=== PATIENT | male | born 1990 | race Caucasian/White ===

== ENCOUNTER 2020-01-07 17:30 | Observation (INO) ==
[2020-01-07] MEDS ORDERED: Ondansetron ODT 4 MG TAB.RAPDIS SL PRN (18:00)
[2020-01-07] MEDS ORDERED: Naloxone 0.4 MG/ML INJ IVP PRN (18:00)
[2020-01-07] MEDS ORDERED: 0.9 % Sodium Chloride 1,000 ML IVC SCH (18:00)
[2020-01-07] MEDS ORDERED: Ketorolac 15 MG/ML VIAL IVP PRN (18:02)
[2020-01-07] MEDS: Nicotine 21 MG PATCH.TD24 TD SCH (20:20)
[2020-01-07] MEDS: *HR* Heparin 5,000 UNIT/ML VIAL SQ SCH (20:23)
[2020-01-07] MEDS: Piperacillin/Tazobactam 3.375 GM in 0.9 % Sodium Chloride Mini Bag 100 ML IVPB SCH (23:42)
[2020-01-08 03:02] LABS: Basophils # 0.1 K/mcL (0.0-0.2); Basophils % 0.8 %; Eosinophils # 0.2 K/mcL (0.0-0.6); Eosinophils % 2.1 %; Hematocrit 40.8 % (37.5-50.1); Hemoglobin 13.5 g/dL (12.9-16.9); Immature Granulocytes % 2.6 % (0-4); Lymphocytes # 3.7 K/mcL (0.6-4.6); Lymphocytes % 33.8 %; Mean Corpuscular HGB Conc 33.1 g/dL (31.6-35.5); Mean Corpuscular Hemoglobin 31.4 pg (28.0-33.3); Mean Corpuscular Volume 94.9 fL (83.0-100.0); Mean Platelet Volume 9.5 fL (9.4-12.4); Monocytes # 0.8 K/mcL (0.0-1.3); Monocytes % 7.3 %; Neutrophils # 5.8 K/mcL (1.6-8.9); Platelet Count 282 K/mcL (140-400); Red Cell Distribution Width 12.2 % (11.5-14.5); Segmented Neutrophils % 53.4 %; White Blood Count 10.9 K/mcL (4.3-11.1)
[2020-01-08 03:25] LABS: BUN/Creatinine Ratio 18 (6-26); Blood Urea Nitrogen 19 mg/dL (6-20); Calcium 9.1 mg/dL (8.6-10.3); Carbon Dioxide 25 mEq/L (23-29); Chloride 105 mEq/L (98-107); Glucose 103 mg/dL (70-105); Osmolality,Calculated 287 (280-300); Sodium 137 mEq/L (136-145); eGFR For African Americans > 60 (> 60); eGFR For Non-African Americans > 60 (> 60)
[2020-01-08] MEDS: *HR* Heparin 5,000 UNIT/ML VIAL SQ SCH ×2 (03:53→15:41)
[2020-01-08] MEDS: Piperacillin/Tazobactam 3.375 GM in 0.9 % Sodium Chloride Mini Bag 100 ML IVPB SCH (09:40)
[2020-01-08] MEDS: Nicotine 21 MG PATCH.TD24 TD SCH (09:40)
[2020-01-08] MEDS ORDERED: *HR* Midazolam HCl 5 MG/5 ML VIAL IVP ONE (13:17)
[2020-01-08] MEDS ORDERED: Ondansetron 4 MG/2 ML VIAL ONE (13:18)
[2020-01-08] MEDS ORDERED: *HR* Propofol 200 MG/20 ML VIAL IVP ONE (13:18)
[2020-01-08] MEDS ORDERED: Lidocaine -MPF 2% 2 ML VIAL ONE (13:18)
[2020-01-08] MEDS ORDERED: *HR* FentaNYL (PF) 100 MCG/2 ML VIAL ONE (13:18)
[2020-01-08] MEDS ORDERED: Ondansetron 4 MG/2 ML VIAL IVP ONE (13:50)
[2020-01-08] MEDS ORDERED: *HR* OxyCODONE Immed Rel 5 MG TABLET PO PRN ×2 (13:50→15:46)
[2020-01-08] MEDS: *HR* HYDROmorphone PF 0.5 MG/0.5 ML SYRINGE IVP PRN ×2 (14:50→15:05)
[2020-01-08] MEDS ORDERED: Naloxone 0.4 MG/ML INJ IVP PRN (15:46)
[2020-01-08] MEDS ORDERED: *HR* HYDROmorphone PF 0.5 MG/0.5 ML SYRINGE IVP PRN (15:46)
[2020-01-08] MEDS ORDERED: Ondansetron ODT 4 MG TAB.RAPDIS SL PRN (15:46)
[2020-01-08] MEDS ORDERED: 0.9 % Sodium Chloride 1,000 ML IVC SCH (15:46)
[2020-01-08] MEDS ORDERED: Ketorolac 15 MG/ML VIAL IVP PRN (15:46)
[2020-01-08] MEDS ORDERED: Piperacillin/Tazobactam 3.375 GM in 0.9 % Sodium Chloride Mini Bag 100 ML IVPB SCH (16:00)
[2020-01-08 16:46] VITALS: BP 129/77
[2020-01-08] MEDS ORDERED: Aminoglycoside Consult 1 EACH MC ONE (18:21)
[2020-01-08] MEDS ORDERED: *HR* Heparin 5,000 UNIT/ML VIAL SQ SCH (22:00)
[2020-01-09] MEDS ORDERED: Nicotine 21 MG PATCH.TD24 TD SCH (09:00)
== END 2020-01-08 18:22 | disposition home or self-care (01) ==
LOC: EMEROOARM 17:30 → 3BNU 17:30 → SUATTDRO 18:14 → 3BNU 18:45
PROVIDERS: ADMIT Student in an Organized Health Care Education/Training Program; ATTEND Family Medicine

== ENCOUNTER 2020-02-07 20:46 | Observation (INO) ==
[2020-02-07] MEDS ORDERED: 0.9 % Sodium Chloride 500 ML IVC ONE (21:08)
[2020-02-07] MEDS ORDERED: Piperacillin/Tazobactam 3.375 GM in 0.9 % Sodium Chloride Mini Bag 100 ML IVPB ONE (21:22)
[2020-02-07 21:30] LABS: Basophils % 0.2 %; Eosinophils # 0.1 K/mcL (0.0-0.6); Eosinophils % 0.5 %; Hematocrit 30.4 % (37.5-50.1); Hemoglobin 10.1 g/dL (12.9-16.9); Immature Granulocytes % 0.8 % (0-4); Lymphocytes # 1.6 K/mcL (0.6-4.6); Lymphocytes % 12.2 %; Mean Corpuscular HGB Conc 33.2 g/dL (31.6-35.5); Mean Corpuscular Hemoglobin 30.5 pg (28.0-33.3); Mean Corpuscular Volume 91.8 fL (83.0-100.0); Mean Platelet Volume 9.3 fL (9.4-12.4); Monocytes # 0.8 K/mcL (0.0-1.3); Monocytes % 6.2 %; Neutrophils # 10.4 K/mcL (1.6-8.9); Platelet Count 328 K/mcL (140-400); Red Blood Count 3.31 M/mcL (4.19-5.50); Red Cell Distribution Width 11.8 % (11.5-14.5); Segmented Neutrophils % 80.1 %
[2020-02-07 21:50] LABS: Alanine Aminotransferase 19 Units/L (7-52); Albumin 3.3 g/dL (3.5-5.7); Albumin/Globulin Ratio 0.9 (1.1-2.2); Alkaline Phosphatase 90 Units/L (34-104); Aspartate Amino Transferase 19 Units/L (13-39); BUN/Creatinine Ratio 20 (6-26); Bilirubin,Total 0.4 mg/dL (0.3-1.0); Blood Urea Nitrogen 17 mg/dL (6-20); Calcium 8.3 mg/dL (8.6-10.3); Carbon Dioxide 25 mEq/L (23-29); Chloride 98 mEq/L (98-107); Globulin 3.5 g/dL (2.4-3.5); Glucose 103 mg/dL (70-105); Osmolality,Calculated 270 (280-300); Potassium 3.7 mEq/L (3.5-5.1); Sodium 129 mEq/L (136-145); Total Protein 6.8 g/dL (6.4-8.9); eGFR For African Americans > 60 (> 60); eGFR For Non-African Americans > 60 (> 60)
[2020-02-07 22:17] LABS: Bilirubin,Urine Negative (Negative); Blood,Urine Negative (Negative); Clarity,Urine Clear (Clear); Color,Urine Yellow (Yellow); Glucose,Urine (UA) Normal (Normal); Ketones,Urine Negative (Negative); Leukocyte Esterase,Urine Negative (Negative); Nitrite,Urine Negative (Negative); PH,Urine 6.5 pH Units (5.0-8.0); Protein,Urine Negative (Neg-Trace); Specific Gravity,Urine 1.024 (1.010-1.025); Urobilinogen,Urine Normal (Normal)
[2020-02-07 22:27] LABS: Amphetamine Screen,Urine Positive ng/mL (Cutoff=1000); Barbiturate Screen,Urine Negative ng/mL (Cutoff=200); Benzodiazepines Screen,Urine Negative ng/mL (Cutoff=200); Cannabinoid Screen,Urine Positive ng/mL (Cutoff = 50); Cocaine Screen,Urine Negative ng/mL (Cutoff= 300); Opiate Screen,Urine Positive ng/mL (Cutoff=300); Phencyclidine Screen,Urine Negative ng/mL (Cutoff=25)
[2020-02-07] MEDS ORDERED: Naloxone 0.4 MG/ML INJ IVP PRN (23:44)
[2020-02-08] MEDS ORDERED: Nicotine 21 MG PATCH.TD24 TD SCH ×2 (02:15→09:00)
[2020-02-08] MEDS: Nicotine 21 MG PATCH.TD24 TD SCH ×2 (02:47→07:54)
[2020-02-08 07:38] LABS: Basophils % 0.2 %; Eosinophils # 0.1 K/mcL (0.0-0.6); Eosinophils % 0.7 %; Hematocrit 29.9 % (37.5-50.1); Hemoglobin 9.9 g/dL (12.9-16.9); Lymphocytes # 1.9 K/mcL (0.6-4.6); Lymphocytes % 15.1 %; Mean Corpuscular HGB Conc 33.1 g/dL (31.6-35.5); Mean Corpuscular Hemoglobin 31.1 pg (28.0-33.3); Mean Platelet Volume 9.5 fL (9.4-12.4); Monocytes % 7.6 %; Neutrophils # 9.5 K/mcL (1.6-8.9); Platelet Count 297 K/mcL (140-400); Red Blood Count 3.18 M/mcL (4.19-5.50); Red Cell Distribution Width 11.9 % (11.5-14.5); Segmented Neutrophils % 75.4 %; White Blood Count 12.6 K/mcL (4.3-11.1)
[2020-02-08 08:00] LABS: BUN/Creatinine Ratio 15 (6-26); Blood Urea Nitrogen 13 mg/dL (6-20); Calcium 8.2 mg/dL (8.6-10.3); Carbon Dioxide 24 mEq/L (23-29); Chloride 102 mEq/L (98-107); Glucose 96 mg/dL (70-105); Osmolality,Calculated 276 (280-300); Potassium 3.7 mEq/L (3.5-5.1); Sodium 133 mEq/L (136-145); eGFR For African Americans > 60 (> 60); eGFR For Non-African Americans > 60 (> 60)
[2020-02-08] MEDS ORDERED: cloNIDine HCL 0.1 MG TABLET PO ONE ×3 (09:30→14:42)
[2020-02-08] MEDS: Ketorolac 30 MG/ML VIAL IVP SCH ×2 (09:56→15:34)
[2020-02-08] MEDS ORDERED: *HR* OxyCODONE Immed Rel 5 MG TABLET PO PRN ×2 (11:08→14:42)
[2020-02-08] MEDS ORDERED: Pregabalin 75 MG CAPSULE PO ONE ×2 (11:08→14:42)
[2020-02-08] MEDS ORDERED: Famotidine 20 MG/2 ML VIAL IVP ONE ×2 (11:08→14:42)
[2020-02-08] MEDS ORDERED: *HR* HYDROmorphone (PF) 1 MG/ML SYRINGE IVP PRN ×2 (11:08→14:42)
[2020-02-08] MEDS ORDERED: *HR* Labetalol 20 MG/4 ML SYRINGE IVP PRN ×2 (11:08→14:42)
[2020-02-08] MEDS ORDERED: *HR* Midazolam HCl 2 MG/2 ML VIAL ONE ×2 (11:37→12:19)
[2020-02-08] MEDS ORDERED: *HR* Propofol 200 MG/20 ML VIAL IVP ONE (11:37)
[2020-02-08] MEDS ORDERED: *HR* FentaNYL (PF) 100 MCG/2 ML VIAL ONE ×4 (11:37→13:06)
[2020-02-08] MEDS: *HR* Promethazine 25 MG/ML VIAL IVP PRN ×2 (13:40→13:45)
[2020-02-08 13:54] VITALS: BP 101/74
[2020-02-08] MEDS ORDERED: Naloxone 0.4 MG/ML INJ IVP PRN (14:42)
[2020-02-08] MEDS ORDERED: *HR* Promethazine 25 MG/ML VIAL IVP PRN (14:42)
[2020-02-08] MEDS ORDERED: Vancomycin 1,250 MG/262.5 ML IV.SOLN IVPB SCH (16:00)
[2020-02-08] MEDS ORDERED: Ketorolac 30 MG/ML VIAL IVP SCH (18:00)
[2020-02-09] MEDS ORDERED: Nicotine 21 MG PATCH.TD24 TD SCH (09:00)
== END 2020-02-08 18:53 | disposition home or self-care (01) ==
LOC: EMEROOARM 20:46 → 3ANU 20:46 → SUATTDRO 22:05 → 3ANU 23:15
PROVIDERS: ADMIT Internal Medicine; ATTEND Internal Medicine

== ENCOUNTER 2020-02-20 21:27 | Inpatient (IN) ==
[2020-02-20] MEDS ORDERED: Isovue-370 500 ML BOTTLE IVP ONE (21:47)
[2020-02-20] MEDS ORDERED: 0.9 % Sodium Chloride 1,000 ML IVC ONE (21:48)
[2020-02-20] MEDS ORDERED: Gadolinium Contrast Agent (WT Based) IV PRN (21:48)
[2020-02-20 22:19] LABS: Basophils % 0.2 %; Hematocrit 35.1 % (37.5-50.1); Hemoglobin 11.6 g/dL (12.9-16.9); Immature Granulocytes % 0.5 % (0-4); Lymphocytes # 0.3 K/mcL (0.6-4.6); Lymphocytes % 3.3 %; Mean Corpuscular Hemoglobin 31.1 pg (28.0-33.3); Mean Corpuscular Volume 94.1 fL (83.0-100.0); Mean Platelet Volume 9.3 fL (9.4-12.4); Monocytes % 0.2 %; Neutrophils # 8.4 K/mcL (1.6-8.9); Platelet Count 222 K/mcL (140-400); Red Blood Count 3.73 M/mcL (4.19-5.50); Red Cell Distribution Width 12.3 % (11.5-14.5); Segmented Neutrophils % 95.8 %; White Blood Count 8.8 K/mcL (4.3-11.1)
[2020-02-20 22:23] LABS: VBG HCO3 25 mEq/L (21-27); VBG PCO2 42 mmHg (41-51); VBG PH 7.38 pH Units (7.32-7.42); VBG PO2 85 mmHg (25-50)
[2020-02-20 22:42] LABS: Acetaminophen < 10 mcg/mL (10-20); Alanine Aminotransferase 54 Units/L (7-52); Albumin 3.3 g/dL (3.5-5.7); Albumin/Globulin Ratio 0.9 (1.1-2.2); Alkaline Phosphatase 177 Units/L (34-104); Aspartate Amino Transferase 139 Units/L (13-39); BUN/Creatinine Ratio 20 (6-26); Bilirubin,Direct 0.7 mg/dL (0.0-0.2); Bilirubin,Indirect 0.5 mg/dL (0.0-1.0); Bilirubin,Total 1.2 mg/dL (0.3-1.0); Blood Urea Nitrogen 23 mg/dL (6-20); Calcium 8.7 mg/dL (8.6-10.3); Carbon Dioxide 23 mEq/L (23-29); Chloride 106 mEq/L (98-107); Ethanol < 10 mg/dL (Less than 10); Globulin 3.5 g/dL (2.4-3.5); Glucose 99 mg/dL (70-105); Lipase 3 Units/L (11-82); Magnesium 1.7 mg/dL (1.6-2.6); Osmolality,Calculated 290 (280-300); Potassium 3.2 mEq/L (3.5-5.1); Salicylate < 2.5 mg/dL (15.0-30.0); Sodium 138 mEq/L (136-145); Total Protein 6.8 g/dL (6.4-8.9); eGFR For African Americans > 60 (> 60); eGFR For Non-African Americans > 60 (> 60)
[2020-02-20 22:44] LABS: Troponin I < 0.03 ng/mL (< 0.04)
[2020-02-20] MEDS ORDERED: *HR* LORazepam 2 MG/ML VIAL IVP ONE (22:46)
[2020-02-20] MEDS ORDERED: Piperacillin/Tazobactam 3.375 GM in 0.9 % Sodium Chloride Mini Bag 100 ML IVPB ONE (22:52)
[2020-02-21 01:16] LABS: Bilirubin,Urine Small (Negative); Blood,Urine Trace (Negative); Clarity,Urine Cloudy (Clear); Color,Urine Dark Yellow (Yellow); Glucose,Urine (UA) Normal (Normal); Ketones,Urine Negative (Negative); Leukocyte Esterase,Urine Negative (Negative); Nitrite,Urine Negative (Negative); PH,Urine 5.5 pH Units (5.0-8.0); Protein,Urine 100 mg/dL (Neg-Trace); Specific Gravity,Urine 1.026 (1.010-1.025); Urobilinogen,Urine Normal (Normal)
[2020-02-21 01:18] LABS: Bacteria,Urine None Seen per hpf (None-Few); Squamous Epithelial Cell,Urine Many per lpf (None-Few)
[2020-02-21 01:31] LABS: Amphetamine Screen,Urine Positive ng/mL (Cutoff=1000); Barbiturate Screen,Urine Negative ng/mL (Cutoff=200); Benzodiazepines Screen,Urine Negative ng/mL (Cutoff=200); Cannabinoid Screen,Urine Positive ng/mL (Cutoff = 50); Cocaine Screen,Urine Negative ng/mL (Cutoff= 300); Opiate Screen,Urine Positive ng/mL (Cutoff=300); Phencyclidine Screen,Urine Negative ng/mL (Cutoff=25)
[2020-02-21 01:33] LABS: Amorphous Sediment,Urine Moderate per hpf (Few); Hyaline Casts,Urine None Seen per lpf (None-Few); Mucus,Urine Few per lpf (Few)
[2020-02-21 03:14] LABS: Hepatitis B Surface Antigen Nonreactive (Nonreactive)
[2020-02-21 03:43] LABS: Hepatitis B Core IgM Nonreactive (Nonreactive)
[2020-02-21] MEDS ORDERED: Naloxone 0.4 MG/ML INJ IVP PRN (03:43)
[2020-02-21] MEDS ORDERED: Mag Hydrox/Al Hydrox/Simeth 30 ML UDC PO PRN (03:43)
[2020-02-21 03:45] LABS: Hepatitis A Antibody IgM Nonreactive (Nonreactive)
[2020-02-21] MEDS ORDERED: Potassium Chloride 20 MEQ, Lidocaine 1% 2 ML in 0.9 % Sodium Chloride 250 ML IVPB ONE (04:30)
[2020-02-21] MEDS ORDERED: MVI, adult with vitamin K 10 ML in 0.9 % Sodium Chloride 1,000 ML IVC ONE (04:30)
[2020-02-21 04:51] LABS: Hepatitis C Virus Antibody Reactive (Nonreactive)
[2020-02-21 05:04] LABS: Creatine Kinase 117 Units/L (30-223); Magnesium 1.7 mg/dL (1.6-2.6)
[2020-02-21 05:05] LABS: Troponin I < 0.03 ng/mL (< 0.04)
[2020-02-21] MEDS: *HR* Heparin 5,000 UNIT/ML VIAL SQ SCH ×2 (05:16→17:24)
[2020-02-21 07:45] LABS: Thyroid Stimulating Hormone 0.177 mcIU/mL (0.340-5.600)
[2020-02-21 10:25] LABS: Triiodothyronine (T3) Total 0.9 ng/mL (0.87-1.78)
[2020-02-21 14:39] LABS: Albumin 3.2 g/dL (3.5-5.7); Bilirubin,Direct 0.2 mg/dL (0.0-0.2); Bilirubin,Indirect 0.5 mg/dL (0.0-1.0); Bilirubin,Total 0.7 mg/dL (0.3-1.0); Globulin 3.1 g/dL (2.4-3.5); Total Protein 6.3 g/dL (6.4-8.9)
[2020-02-21] MEDS ORDERED: cloNIDine HCL 0.1 MG TABLET PO ONE (15:01)
[2020-02-21] MEDS: NALOXONE HCL SL SCH ×2 (17:24→19:57)
[2020-02-21] MEDS: BUPRENORPHINE HCL SL SCH ×2 (17:24→19:57)
[2020-02-21] MEDS: 0.9 % Sodium Chloride 1,000 ML IVC SCH ×2 (17:29→19:57)
[2020-02-21] MEDS: *HR* LORazepam 2 MG/ML VIAL IVP PRN (20:10)
[2020-02-21] MEDS ORDERED: methocarbamoL 500 MG TABLET PO PRN (20:32)
[2020-02-21] MEDS: rOPINIRole 1 MG TABLET PO SCH (20:52)
[2020-02-21] MEDS: *HR* LORazepam 1 MG TABLET PO SCH (20:52)
[2020-02-22] MEDS: *HR* LORazepam 2 MG/ML VIAL IVP PRN ×3 (03:00→23:52)
[2020-02-22] MEDS: 0.9 % Sodium Chloride 1,000 ML IVC SCH ×3 (03:05→21:04)
[2020-02-22] MEDS: *HR* Heparin 5,000 UNIT/ML VIAL SQ SCH ×2 (05:01→17:19)
[2020-02-22 05:51] LABS: Basophils # 0.1 K/mcL (0.0-0.2); Basophils % 0.3 %; Eosinophils % 0.1 %; Hematocrit 32.6 % (37.5-50.1); Hemoglobin 10.8 g/dL (12.9-16.9); Immature Granulocytes % 1.1 % (0-4); Lymphocytes # 2.1 K/mcL (0.6-4.6); Lymphocytes % 9.5 %; Mean Corpuscular HGB Conc 33.1 g/dL (31.6-35.5); Mean Corpuscular Hemoglobin 30.7 pg (28.0-33.3); Mean Corpuscular Volume 92.6 fL (83.0-100.0); Mean Platelet Volume 10.5 fL (9.4-12.4); Monocytes # 1.1 K/mcL (0.0-1.3); Monocytes % 4.9 %; Neutrophils # 18.3 K/mcL (1.6-8.9); Platelet Count 202 K/mcL (140-400); Red Blood Count 3.52 M/mcL (4.19-5.50); Red Cell Distribution Width 12.8 % (11.5-14.5); Segmented Neutrophils % 84.1 %
[2020-02-22 05:52] LABS: White Blood Count 21.7 K/mcL (4.3-11.1)
[2020-02-22 06:11] LABS: Alanine Aminotransferase 36 Units/L (7-52); Albumin 3.3 g/dL (3.5-5.7); Alkaline Phosphatase 121 Units/L (34-104); Aspartate Amino Transferase 37 Units/L (13-39); BUN/Creatinine Ratio 26 (6-26); Bilirubin,Total 0.7 mg/dL (0.3-1.0); Blood Urea Nitrogen 18 mg/dL (6-20); Calcium 8.8 mg/dL (8.6-10.3); Carbon Dioxide 21 mEq/L (23-29); Chloride 110 mEq/L (98-107); Globulin 3.2 g/dL (2.4-3.5); Glucose 106 mg/dL (70-105); Osmolality,Calculated 286 (280-300); Sodium 137 mEq/L (136-145); Total Protein 6.5 g/dL (6.4-8.9); eGFR For African Americans > 60 (> 60); eGFR For Non-African Americans > 60 (> 60)
[2020-02-22 06:13] LABS: Magnesium 2.1 mg/dL (1.6-2.6); Phosphorous 1.8 mg/dL (2.7-4.5)
[2020-02-22] MEDS: *HR* LORazepam 1 MG TABLET PO SCH (09:46)
[2020-02-22] MEDS: NALOXONE HCL SL SCH ×4 (09:47→20:03)
[2020-02-22] MEDS: BUPRENORPHINE HCL SL SCH ×4 (09:47→20:03)
[2020-02-22] MEDS: Piperacillin/Tazobactam 3.375 GM in 0.9 % Sodium Chloride Mini Bag 100 ML IVPB SCH ×2 (13:26→19:56)
[2020-02-22] MEDS: Nicotine 21 MG PATCH.TD24 TD SCH (14:07)
[2020-02-22] MEDS: Ondansetron 4 MG/2 ML VIAL IVP PRN (18:32)
[2020-02-22] MEDS: rOPINIRole 1 MG TABLET PO SCH (20:03)
[2020-02-22] MEDS ORDERED: Ondansetron 4 MG/2 ML VIAL IVP ONE (22:52)
[2020-02-23 02:23] LABS: Basophils % 0.2 %; Eosinophils % 0.1 %; Hematocrit 35.8 % (37.5-50.1); Hemoglobin 11.8 g/dL (12.9-16.9); Immature Granulocytes % 0.6 % (0-4); Lymphocytes # 1.8 K/mcL (0.6-4.6); Lymphocytes % 11.4 %; Mean Corpuscular Volume 91.1 fL (83.0-100.0); Mean Platelet Volume 10.6 fL (9.4-12.4); Monocytes # 0.7 K/mcL (0.0-1.3); Monocytes % 4.2 %; Platelet Count 275 K/mcL (140-400); Red Blood Count 3.93 M/mcL (4.19-5.50); Red Cell Distribution Width 12.7 % (11.5-14.5); Segmented Neutrophils % 83.5 %; White Blood Count 15.6 K/mcL (4.3-11.1)
[2020-02-23 02:38] LABS: BUN/Creatinine Ratio 19 (6-26); Blood Urea Nitrogen 16 mg/dL (6-20); Calcium 8.8 mg/dL (8.6-10.3); Carbon Dioxide 22 mEq/L (23-29); Chloride 108 mEq/L (98-107); Glucose 113 mg/dL (70-105); Osmolality,Calculated 290 (280-300); Phosphorous 2.5 mg/dL (2.7-4.5); Potassium 3.6 mEq/L (3.5-5.1); Sodium 139 mEq/L (136-145); eGFR For African Americans > 60 (> 60); eGFR For Non-African Americans > 60 (> 60)
[2020-02-23] MEDS: Piperacillin/Tazobactam 3.375 GM in 0.9 % Sodium Chloride Mini Bag 100 ML IVPB SCH ×2 (03:36→13:14)
[2020-02-23] MEDS: Ondansetron 4 MG/2 ML VIAL IVP PRN ×2 (03:37→10:29)
[2020-02-23] MEDS: *HR* Heparin 5,000 UNIT/ML VIAL SQ SCH ×2 (05:09→13:42)
[2020-02-23 06:32] VITALS: BP 119/57
[2020-02-23] MEDS: *HR* LORazepam 2 MG/ML VIAL IVP PRN (10:25)
[2020-02-23] MEDS: Nicotine 21 MG PATCH.TD24 TD SCH (10:31)
[2020-02-23] MEDS: BUPRENORPHINE HCL SL SCH ×3 (10:37→13:42)
[2020-02-23] MEDS: NALOXONE HCL SL SCH ×3 (10:37→13:42)
[2020-02-23] MEDS ORDERED: *HR* Promethazine 25 MG/ML VIAL IVP PRN (12:10)
[2020-02-23] MEDS ORDERED: Pantoprazole 40 MG VIAL IVP SCH (12:15)
[2020-02-23] MEDS: 0.9 % Sodium Chloride 1,000 ML IVC SCH (13:14)
[2020-02-23] MEDS ORDERED: Aminoglycoside Consult 1 EACH MC ONE (16:27)
== END 2020-02-23 16:28 | disposition left against medical advice (07) | DRG 917 ==
LOC: EMEROOARM 21:27 → 3BNU 21:27 → SUATTDRO 02-21 02:16 → 3BNU 02-21 02:32
PROVIDERS: ADMIT Internal Medicine; ATTEND Internal Medicine

== ENCOUNTER 2020-05-09 17:21 | Inpatient (IN) ==
[2020-05-09] MEDS ORDERED: 0.9 % Sodium Chloride 1,000 ML IVC ONE ×2 (17:36→22:44)
[2020-05-09] MEDS ORDERED: OLANZapine 10 MG VIAL IM ONE (17:45)
[2020-05-09] MEDS ORDERED: Acetaminophen 325 MG TABLET PO ONE (17:48)
[2020-05-09] MEDS ORDERED: *HR* LORazepam 2 MG/ML VIAL IVP ONE (18:39)
[2020-05-09] MEDS ORDERED: Isovue-370 500 ML BOTTLE IVP ONE ×2 (18:46→19:30)
[2020-05-09 18:49] LABS: Basophils # 0.1 K/mcL (0.0-0.2); Basophils % 0.5 %; Eosinophils # 0.1 K/mcL (0.0-0.6); Eosinophils % 0.6 %; Hematocrit 38.9 % (37.5-50.1); Hemoglobin 12.6 g/dL (12.9-16.9); Immature Granulocytes % 0.5 % (0-4); Lymphocytes # 1.4 K/mcL (0.6-4.6); Lymphocytes % 12.6 %; Mean Corpuscular HGB Conc 32.4 g/dL (31.6-35.5); Mean Corpuscular Hemoglobin 29.5 pg (28.0-33.3); Mean Corpuscular Volume 91.1 fL (83.0-100.0); Mean Platelet Volume 9.4 fL (9.4-12.4); Monocytes # 0.3 K/mcL (0.0-1.3); Neutrophils # 9.1 K/mcL (1.6-8.9); Platelet Count 305 K/mcL (140-400); Red Blood Count 4.27 M/mcL (4.19-5.50); Red Cell Distribution Width 13.2 % (11.5-14.5); Segmented Neutrophils % 82.8 %
[2020-05-09 18:57] LABS: VBG HCO3 26 mEq/L (21-27); VBG PCO2 56 mmHg (41-51); VBG PH 7.27 pH Units (7.32-7.42); VBG PO2 63 mmHg (25-50)
[2020-05-09 19:01] LABS: INR 1.1; Prothrombin Time 12.2 Seconds (9.4-12.1)
[2020-05-09 19:04] LABS: Activated Partial Thrombo Time 33.4 Seconds (26.0-36.0)
[2020-05-09] MEDS ORDERED: 0.9 % Sodium Chloride 1,000 ML IV ONE (19:10)
[2020-05-09 19:23] LABS: Acetaminophen < 10 mcg/mL (10-20); Alanine Aminotransferase 28 Units/L (7-52); Albumin 4.1 g/dL (3.5-5.7); Albumin/Globulin Ratio 1.1 (1.1-2.2); Alkaline Phosphatase 121 Units/L (34-104); Aspartate Amino Transferase 28 Units/L (13-39); BUN/Creatinine Ratio 26 (6-26); Bilirubin,Direct 0.3 mg/dL (0.0-0.2); Bilirubin,Indirect 0.7 mg/dL (0.0-1.0); Blood Urea Nitrogen 27 mg/dL (6-20); Calcium 9.6 mg/dL (8.6-10.3); Carbon Dioxide 23 mEq/L (23-29); Chloride 100 mEq/L (98-107); Creatine Kinase 208 Units/L (30-223); Ethanol < 10 mg/dL (Less than 10); Globulin 3.6 g/dL (2.4-3.5); Glucose 93 mg/dL (70-105); Lipase 3 Units/L (11-82); Osmolality,Calculated 287 (280-300); Potassium 4.1 mEq/L (3.5-5.1); Salicylate < 2.5 mg/dL (15.0-30.0); Sodium 136 mEq/L (136-145); Total Protein 7.7 g/dL (6.4-8.9); Troponin I < 0.03 ng/mL (< 0.04); eGFR For African Americans > 60 (> 60); eGFR For Non-African Americans > 60 (> 60)
[2020-05-09] MEDS ORDERED: Piperacillin/Tazobactam 3.375 GM in 0.9 % Sodium Chloride Mini Bag 100 ML IVPB ONE (20:01)
[2020-05-09 20:24] LABS: Red Blood Cell,CSF < 2000 RBC/mcL
[2020-05-09 20:26] LABS: Appearance,CSF Clear (Clear)
[2020-05-09] MEDS ORDERED: Piperacillin/Tazobactam 3.375 GM in Water for inj. (sterile) 20 ML IVP ONE (20:43)
[2020-05-09 20:52] LABS: Glucose,CSF 59 mg/dL (40-70); Total Protein,CSF 30 mg/dL (15-45)
[2020-05-09] MEDS ORDERED: Acyclovir 500 MG in D5% in Water 100 ML IVPB ONE (21:00)
[2020-05-09 21:39] LABS: Bilirubin,Urine Negative (Negative); Blood,Urine Trace (Negative); Clarity,Urine Clear (Clear); Color,Urine Light-Yellow (Yellow); Glucose,Urine (UA) Normal (Normal); Ketones,Urine Negative (Negative); Leukocyte Esterase,Urine Negative (Negative); Nitrite,Urine Negative (Negative); Protein,Urine Negative (Neg-Trace); RBC,Urine 0-3 per hpf (0-3); Specific Gravity,Urine > 1.030 (1.010-1.025); Urobilinogen,Urine Normal (Normal); WBC,Urine 0-3 per hpf (0-3)
[2020-05-09 21:52] LABS: Amphetamine Screen,Urine Positive ng/mL (Cutoff=1000); Barbiturate Screen,Urine Negative ng/mL (Cutoff=200); Benzodiazepines Screen,Urine Negative ng/mL (Cutoff=200); Cannabinoid Screen,Urine Positive ng/mL (Cutoff = 50); Cocaine Screen,Urine Positive ng/mL (Cutoff= 300); Opiate Screen,Urine Negative ng/mL (Cutoff=300); Phencyclidine Screen,Urine Negative ng/mL (Cutoff=25)
[2020-05-09] MEDS ORDERED: Naloxone 0.4 MG/ML INJ IVP PRN (23:35)
[2020-05-10] MEDS ORDERED: *HR* LORazepam 2 MG/ML VIAL IVP PRN (00:58)
[2020-05-10] MEDS ORDERED: *HR* Promethazine 25 MG/ML VIAL IVP PRN (00:58)
[2020-05-10] MEDS ORDERED: Perflutren Lipid Microsphere 1.3 ML in 0.9 % Sodium Chloride 8.7 ML IVP PRN (01:38)
[2020-05-10] MEDS ORDERED: Vancomycin 1,250 MG/262.5 ML IV.SOLN IVPB ONE (02:00)
[2020-05-10] MEDS: 0.9 % Sodium Chloride 1,000 ML IVC SCH ×3 (02:19→15:40)
[2020-05-10] MEDS: *HR* Enoxaparin 40 MG/0.4 ML SYRINGE SQ SCH (05:38)
[2020-05-10 05:51] LABS: Basophils % 0.4 %; Eosinophils # 0.1 K/mcL (0.0-0.6); Eosinophils % 1.1 %; Hematocrit 34.1 % (37.5-50.1); Immature Granulocytes % 0.2 % (0-4); Lymphocytes # 2.5 K/mcL (0.6-4.6); Lymphocytes % 26.7 %; Mean Corpuscular Hemoglobin 29.1 pg (28.0-33.3); Mean Corpuscular Volume 91.2 fL (83.0-100.0); Mean Platelet Volume 9.7 fL (9.4-12.4); Monocytes # 1.1 K/mcL (0.0-1.3); Monocytes % 11.3 %; Neutrophils # 5.6 K/mcL (1.6-8.9); Platelet Count 243 K/mcL (140-400); Red Blood Count 3.74 M/mcL (4.19-5.50); Red Cell Distribution Width 13.6 % (11.5-14.5); Segmented Neutrophils % 60.3 %; White Blood Count 9.3 K/mcL (4.3-11.1)
[2020-05-10 05:53] LABS: Hemoglobin 10.9 g/dL (12.9-16.9)
[2020-05-10 06:19] LABS: Alanine Aminotransferase 20 Units/L (7-52); Albumin 3.1 g/dL (3.5-5.7); Alkaline Phosphatase 82 Units/L (34-104); Aspartate Amino Transferase 21 Units/L (13-39); BUN/Creatinine Ratio 24 (6-26); Bilirubin,Total 0.8 mg/dL (0.3-1.0); Blood Urea Nitrogen 18 mg/dL (6-20); Calcium 8.4 mg/dL (8.6-10.3); Carbon Dioxide 23 mEq/L (23-29); Chloride 110 mEq/L (98-107); Glucose 95 mg/dL (70-105); Magnesium 2.1 mg/dL (1.6-2.6); Osmolality,Calculated 288 (280-300); Phosphorous 3.3 mg/dL (2.7-4.5); Potassium 3.8 mEq/L (3.5-5.1); Sodium 138 mEq/L (136-145); Total Protein 6.1 g/dL (6.4-8.9); eGFR For African Americans > 60 (> 60); eGFR For Non-African Americans > 60 (> 60)
[2020-05-10] MEDS ORDERED: Acyclovir 500 MG in D5% in Water 100 ML IVPB SCH ×2 (08:00→13:00)
[2020-05-10] MEDS: *HR* LORazepam 2 MG/ML VIAL IVP PRN ×2 (09:35→13:42)
[2020-05-10] MEDS: Piperacillin/Tazobactam 3.375 GM in 0.9 % Sodium Chloride Mini Bag 100 ML IVPB SCH ×2 (10:00→15:59)
[2020-05-10] MEDS ORDERED: Folic Acid 1 MG in 0.9 % Sodium Chloride 50 ML IVPB ONE (13:26)
[2020-05-10] MEDS ORDERED: Haloperidol Lactate 5 MG/ML VIAL IVP STA (14:45)
[2020-05-10 15:03] LABS: vanA/B Vancomycin-Resist Genes Not Detected (Not Detect)
[2020-05-10 15:04] LABS: Acinetobacter baumannii by PCR Not Detected (Not Detect); Candida albicans by PCR Not Detected (Not Detect); Candida glabrata by PCR Not Detected (Not Detect); Candida krusei by PCR Not Detected (Not Detect); Candida parapsilosis by PCR Not Detected (Not Detect); Candida tropicalis by PCR Not Detected (Not Detect); Enterobacter cloacae Cmplx PCR Not Detected (Not Detect); Enterobacteriaceae by PCR Not Detected (Not Detect); Enterococcus by PCR DETECTED (Not Detect); Escherichia coli by PCR Not Detected (Not Detect); Klebsiella oxytoca by PCR Not Detected (Not Detect); Klebsiella pneumoniae by PCR Not Detected (Not Detect); Proteus by PCR Not Detected (Not Detect); Pseudomonas aeruginosa by PCR Not Detected (Not Detect); Serratia marcescens by PCR Not Detected (Not Detect); Staphylococcus aureus by PCR Not Detected (Not Detect); Staphylococcus by PCR Not Detected (Not Detect); Streptococcus agalactiae(B)PCR Not Detected (Not Detect); Streptococcus by PCR Not Detected (Not Detect); Streptococcus pneumoniae PCR Not Detected (Not Detect); Streptococcus pyogenes (A) PCR Not Detected (Not Detect)
[2020-05-10] MEDS ORDERED: PHENobarbital 65 MG/ML VIAL IVP ONE (16:18)
[2020-05-10] MEDS ORDERED: SODIUM CHLORIDE 0.9% IVPB ONE (17:15)
[2020-05-10] MEDS ORDERED: PHENOBARBITAL IVPB ONE (17:15)
[2020-05-10] MEDS: Thiamine (B-1) 100 MG, Folic Acid 1 MG, MVI, adult with vitamin K 10 ML in 0.9 % Sodi... IVPB SCH (17:46)
[2020-05-11] MEDS: 0.9 % Sodium Chloride 1,000 ML IVC SCH ×4 (00:14→23:17)
[2020-05-11 05:17] LABS: Basophils % 0.6 %; Eosinophils % 0.4 %; Hematocrit 36.7 % (37.5-50.1); Hemoglobin 11.8 g/dL (12.9-16.9); Immature Granulocytes % 0.3 % (0-4); Lymphocytes # 1.9 K/mcL (0.6-4.6); Lymphocytes % 26.9 %; Mean Corpuscular HGB Conc 32.2 g/dL (31.6-35.5); Mean Corpuscular Hemoglobin 29.6 pg (28.0-33.3); Mean Corpuscular Volume 92.2 fL (83.0-100.0); Mean Platelet Volume 9.6 fL (9.4-12.4); Monocytes # 0.5 K/mcL (0.0-1.3); Monocytes % 7.2 %; Neutrophils # 4.6 K/mcL (1.6-8.9); Platelet Count 274 K/mcL (140-400); Red Blood Count 3.98 M/mcL (4.19-5.50); Red Cell Distribution Width 13.6 % (11.5-14.5); Segmented Neutrophils % 64.6 %; White Blood Count 7.1 K/mcL (4.3-11.1)
[2020-05-11 05:37] LABS: BUN/Creatinine Ratio 21 (6-26); Blood Urea Nitrogen 15 mg/dL (6-20); C-Reactive Protein 19 mg/L (Less than 10); Calcium 8.3 mg/dL (8.6-10.3); Carbon Dioxide 18 mEq/L (23-29); Chloride 112 mEq/L (98-107); Glucose 89 mg/dL (70-105); Osmolality,Calculated 290 (280-300); Potassium 3.8 mEq/L (3.5-5.1); Sodium 140 mEq/L (136-145); eGFR For African Americans > 60 (> 60); eGFR For Non-African Americans > 60 (> 60)
[2020-05-11] MEDS: *HR* Enoxaparin 40 MG/0.4 ML SYRINGE SQ SCH (06:22)
[2020-05-11] MEDS: *HR* LORazepam 2 MG/ML VIAL IVP PRN ×2 (09:40→15:02)
[2020-05-11] MEDS ORDERED: SODIUM CHLORIDE 0.9% IVPB STA (12:06)
[2020-05-11] MEDS ORDERED: PHENOBARBITAL IVPB STA (12:06)
[2020-05-11] MEDS ORDERED: Vancomycin 500 MG in 0.9 % Sodium Chloride Mini Bag 100 ML IVPB ONE (15:00)
[2020-05-11] MEDS ORDERED: diazePAM 10 MG/2 ML SYRINGE IVP ONE (15:33)
[2020-05-11] MEDS ORDERED: Ondansetron 4 MG/2 ML VIAL IVP PRN (15:34)
[2020-05-11] MEDS ORDERED: diazePAM 10 MG/2 ML SYRINGE IVP PRN ×3 (16:18)
[2020-05-11] MEDS: Thiamine (B-1) 100 MG, Folic Acid 1 MG, MVI, adult with vitamin K 10 ML in 0.9 % Sodi... IVPB SCH (17:36)
[2020-05-12] MEDS: diazePAM 10 MG/2 ML SYRINGE IVP PRN ×2 (01:38→10:54)
[2020-05-12] MEDS ORDERED: Vancomycin 1,500 MG/265 ML IV.SOLN IVPB SCH (02:00)
[2020-05-12] MEDS: *HR* Enoxaparin 40 MG/0.4 ML SYRINGE SQ SCH (05:57)
[2020-05-12] MEDS ORDERED: Ampicillin 2 GM in 0.9 % Sodium Chloride Mini Bag 100 ML IVPB SCH (09:18)
[2020-05-12 09:56] VITALS: BP 131/78
[2020-05-12] MEDS: 0.9 % Sodium Chloride 1,000 ML IVC SCH (10:10)
[2020-05-12 10:24] LABS: Basophils % 0.3 %; Eosinophils % 0.3 %; Hematocrit 34.5 % (37.5-50.1); Hemoglobin 11.2 g/dL (12.9-16.9); Immature Granulocytes % 0.5 % (0-4); Lymphocytes % 24.7 %; Mean Corpuscular HGB Conc 32.5 g/dL (31.6-35.5); Mean Corpuscular Hemoglobin 29.6 pg (28.0-33.3); Mean Platelet Volume 9.5 fL (9.4-12.4); Monocytes # 0.6 K/mcL (0.0-1.3); Monocytes % 7.4 %; Neutrophils # 5.3 K/mcL (1.6-8.9); Platelet Count 292 K/mcL (140-400); Red Blood Count 3.79 M/mcL (4.19-5.50); Red Cell Distribution Width 13.6 % (11.5-14.5); Segmented Neutrophils % 66.8 %
[2020-05-12 10:51] LABS: Alanine Aminotransferase 14 Units/L (7-52); Albumin 3.2 g/dL (3.5-5.7); Albumin/Globulin Ratio 1.1 (1.1-2.2); Alkaline Phosphatase 66 Units/L (34-104); Aspartate Amino Transferase 12 Units/L (13-39); BUN/Creatinine Ratio 19 (6-26); Bilirubin,Total 0.4 mg/dL (0.3-1.0); Blood Urea Nitrogen 15 mg/dL (6-20); Calcium 8.5 mg/dL (8.6-10.3); Carbon Dioxide 24 mEq/L (23-29); Chloride 110 mEq/L (98-107); Glucose 92 mg/dL (70-105); Magnesium 1.9 mg/dL (1.6-2.6); Osmolality,Calculated 290 (280-300); Phosphorous 1.8 mg/dL (2.7-4.5); Potassium 3.4 mEq/L (3.5-5.1); Sodium 140 mEq/L (136-145); Total Protein 6.2 g/dL (6.4-8.9); eGFR For African Americans > 60 (> 60); eGFR For Non-African Americans > 60 (> 60)
[2020-05-15 09:59] LABS: HSV Source CSF
== END 2020-05-12 13:19 | disposition left against medical advice (07) | DRG 871 ==
LOC: EMEROOARM 17:21 → 3BNU 17:21 → SUATTDRO 23:23 → 3BNU 23:45 → SUATTDRO 05-11 11:19
PROVIDERS: ADMIT Internal Medicine; ATTEND Internal Medicine

== ENCOUNTER 2020-05-14 12:03 | Observation (INO) ==
[2020-05-14 13:31] LABS: Basophils % 0.6 %; Eosinophils # 0.1 K/mcL (0.0-0.6); Eosinophils % 1.7 %; Hematocrit 34.4 % (37.5-50.1); Hemoglobin 11.1 g/dL (12.9-16.9); Immature Granulocytes % 1.2 % (0-4); Lymphocytes # 2.3 K/mcL (0.6-4.6); Lymphocytes % 32.9 %; Mean Corpuscular HGB Conc 32.3 g/dL (31.6-35.5); Mean Corpuscular Hemoglobin 29.6 pg (28.0-33.3); Mean Corpuscular Volume 91.7 fL (83.0-100.0); Mean Platelet Volume 9.5 fL (9.4-12.4); Monocytes # 0.6 K/mcL (0.0-1.3); Monocytes % 8.7 %; Neutrophils # 3.8 K/mcL (1.6-8.9); Platelet Count 262 K/mcL (140-400); Red Blood Count 3.75 M/mcL (4.19-5.50); Red Cell Distribution Width 13.4 % (11.5-14.5); Segmented Neutrophils % 54.9 %; White Blood Count 6.9 K/mcL (4.3-11.1)
[2020-05-14 14:11] LABS: BUN/Creatinine Ratio 13 (6-26); Blood Urea Nitrogen 9 mg/dL (6-20); Calcium 8.5 mg/dL (8.6-10.3); Carbon Dioxide 25 mEq/L (23-29); Chloride 108 mEq/L (98-107); Glucose 99 mg/dL (70-105); Osmolality,Calculated 289 (280-300); Potassium 3.6 mEq/L (3.5-5.1); Sodium 140 mEq/L (136-145); Troponin I < 0.03 ng/mL (< 0.04); eGFR For African Americans > 60 (> 60); eGFR For Non-African Americans > 60 (> 60)
[2020-05-14] MEDS ORDERED: SODIUM CHLORIDE 0.9% IVPB ONE (14:21)
[2020-05-14] MEDS ORDERED: AMPICILLIN IVPB ONE (14:21)
[2020-05-14] MEDS ORDERED: Ampicillin 2 GM in 0.9 % Sodium Chloride Mini Bag 100 ML IVPB ONE (14:30)
[2020-05-14] MEDS ORDERED: Naloxone 0.4 MG/ML INJ IVP PRN (16:01)
[2020-05-14] MEDS ORDERED: Ondansetron ODT 4 MG TAB.RAPDIS SL ONE (16:49)
[2020-05-14] MEDS ORDERED: cloNIDine HCL 0.1 MG TABLET PO ONE (17:14)
[2020-05-14] MEDS ORDERED: *HR* FentaNYL PATCH 25 MCG PATCH TD SCH (17:15)
[2020-05-14 18:10] LABS: C-Reactive Protein < 5 mg/L (Less than 10)
[2020-05-14] MEDS: Nicotine 21 MG PATCH.TD24 TD SCH (19:35)
[2020-05-14] MEDS: Ampicillin 2 GM in 0.9 % Sodium Chloride Mini Bag 100 ML IVPB SCH (22:09)
[2020-05-15] MEDS: *HR* OxyCODONE/APAP 5/325 TABLET PO PRN ×2 (04:17→11:26)
[2020-05-15] MEDS: Ampicillin 2 GM in 0.9 % Sodium Chloride Mini Bag 100 ML IVPB SCH ×2 (04:18→10:29)
[2020-05-15 06:20] LABS: Basophils # 0.1 K/mcL (0.0-0.2); Basophils % 0.7 %; Eosinophils # 0.1 K/mcL (0.0-0.6); Eosinophils % 1.9 %; Hemoglobin 10.9 g/dL (12.9-16.9); Immature Granulocytes % 1.2 % (0-4); Lymphocytes # 2.9 K/mcL (0.6-4.6); Lymphocytes % 43.3 %; Mean Corpuscular HGB Conc 32.1 g/dL (31.6-35.5); Mean Corpuscular Volume 93.7 fL (83.0-100.0); Monocytes # 0.5 K/mcL (0.0-1.3); Monocytes % 7.8 %; Platelet Count 263 K/mcL (140-400); Red Blood Count 3.63 M/mcL (4.19-5.50); Red Cell Distribution Width 13.2 % (11.5-14.5); Segmented Neutrophils % 45.1 %; White Blood Count 6.8 K/mcL (4.3-11.1)
[2020-05-15 06:28] LABS: Neutrophils # 3.1 K/mcL (1.6-8.9)
[2020-05-15 07:07] LABS: BUN/Creatinine Ratio 16 (6-26); Blood Urea Nitrogen 13 mg/dL (6-20); Calcium 8.5 mg/dL (8.6-10.3); Carbon Dioxide 27 mEq/L (23-29); Chloride 105 mEq/L (98-107); Glucose 87 mg/dL (70-105); Osmolality,Calculated 285 (280-300); Potassium 4.2 mEq/L (3.5-5.1); Sodium 138 mEq/L (136-145); eGFR For African Americans > 60 (> 60); eGFR For Non-African Americans > 60 (> 60)
[2020-05-15 07:11] LABS: Platelet Estimate Normal (Normal); Reactive Lymphocytes Present (Not Present)
[2020-05-15] MEDS: Nicotine 21 MG PATCH.TD24 TD SCH (07:23)
[2020-05-15 11:37] VITALS: BP 131/85
[2020-05-15] MEDS ORDERED: Ampicillin 2 GM in 0.9 % Sodium Chloride Mini Bag 100 ML IVPB SCH (14:00)
== END 2020-05-15 12:33 | disposition left against medical advice (07) ==
LOC: 3BNU 12:03 → EMEROOARM 12:03 → 3BNU 16:17
PROVIDERS: ADMIT Internal Medicine; ATTEND Internal Medicine

== ENCOUNTER 2020-05-19 22:41 | Observation (INO) ==
[2020-05-19 23:59] LABS: Basophils # 0.1 K/mcL (0.0-0.2); Basophils % 0.7 %; Eosinophils % 0.4 %; Hematocrit 36.4 % (37.5-50.1); Hemoglobin 11.8 g/dL (12.9-16.9); Immature Granulocytes % 0.4 % (0-4); Immature Platelets 3.6 % (1.1-6.1); Lymphocytes # 1.9 K/mcL (0.6-4.6); Lymphocytes % 17.4 %; Mean Corpuscular HGB Conc 32.4 g/dL (31.6-35.5); Mean Corpuscular Hemoglobin 29.1 pg (28.0-33.3); Mean Corpuscular Volume 89.9 fL (83.0-100.0); Mean Platelet Volume 10.1 fL (9.4-12.4); Monocytes # 1.4 K/mcL (0.0-1.3); Monocytes % 13.3 %; Neutrophils # 7.3 K/mcL (1.6-8.9); Platelet Count 223 K/mcL (140-400); Red Blood Count 4.05 M/mcL (4.19-5.50); Red Cell Distribution Width 13.6 % (11.5-14.5); Segmented Neutrophils % 67.8 %; White Blood Count 10.7 K/mcL (4.3-11.1)
[2020-05-20 00:16] LABS: BUN/Creatinine Ratio 27 (6-26); Blood Urea Nitrogen 23 mg/dL (6-20); Calcium 9.3 mg/dL (8.6-10.3); Carbon Dioxide 23 mEq/L (23-29); Chloride 99 mEq/L (98-107); Glucose 114 mg/dL (70-105); Osmolality,Calculated 283 (280-300); Potassium 3.9 mEq/L (3.5-5.1); Sodium 134 mEq/L (136-145); eGFR For African Americans > 60 (> 60); eGFR For Non-African Americans > 60 (> 60)
[2020-05-20 00:25] LABS: Platelet Estimate Normal (Normal)
[2020-05-20] MEDS ORDERED: *HR* OxyCODONE Immed Rel 5 MG TABLET PO ONE (01:18)
[2020-05-20] MEDS ORDERED: Piperacillin/Tazobactam 3.375 GM in 0.9 % Sodium Chloride Mini Bag 100 ML IVPB ONE (01:30)
[2020-05-20] MEDS ORDERED: Vancomycin 1,250 MG/262.5 ML IV.SOLN IVPB ONE (01:30)
[2020-05-20] MEDS ORDERED: Lidocaine/EPI 1:100k 1% 30 ML VIAL INFILT ONE (01:31)
[2020-05-20] MEDS ORDERED: MetroNIDAZOLE 500 MG/100 ML 500 MG/100 ML BAG IVPB ONE (02:50)
[2020-05-20] MEDS ORDERED: Cefepime HCl 2,000 MG in 0.9 % Sodium Chloride Mini Bag 100 ML IVPB ONE (02:50)
[2020-05-20] MEDS ORDERED: Ondansetron ODT 4 MG TAB.RAPDIS SL PRN (05:14)
[2020-05-20] MEDS ORDERED: Acetaminophen 325 MG TABLET PO PRN (05:14)
[2020-05-20] MEDS ORDERED: Naloxone 0.4 MG/ML INJ IVP PRN (05:14)
[2020-05-20 05:49] LABS: C-Reactive Protein 77 mg/L (Less than 10)
[2020-05-20] MEDS: Ampicillin 2 GM in 0.9 % Sodium Chloride Mini Bag 100 ML IVPB SCH ×5 (08:30→23:59)
[2020-05-20] MEDS: Ketorolac 30 MG/ML VIAL IVP PRN ×2 (08:30→19:41)
[2020-05-20] MEDS: 0.9 % Sodium Chloride 1,000 ML IVC SCH ×2 (08:30→14:58)
[2020-05-20] MEDS ORDERED: cloNIDine HCL 0.1 MG TABLET PO ONE (09:22)
[2020-05-20] MEDS ORDERED: cloNIDine HCL 0.1 MG TABLET PO PRN (09:47)
[2020-05-20] MEDS: *HR* LORazepam 1 MG TABLET PO PRN ×2 (10:02→19:41)
[2020-05-20 11:40] LABS: Adenovirus Not Detected (Not Detect); Bordetella Pertussis Not Detected (Not Detect); Chlamydophila pneumoniae Not Detected (Not Detect); Coronavirus 229E Not Detected (Not Detect); Coronavirus HKU1 Not Detected (Not Detect); Coronavirus NL63 Not Detected (Not Detect); Coronavirus OC43 Not Detected (Not Detect); Human Metapneumovirus Not Detected (Not Detect); Human Rhinovirus/Enterovirus Not Detected (Not Detect); Influenza A Subtype 2009 H1 Not Detected (Not Detect); Influenza B Not Detected (Not Detect); Mycoplasma pneumoniae Not Detected (Not Detect); Parainfluenza Virus 1 Not Detected (Not Detect); Parainfluenza Virus 2 Not Detected (Not Detect); Parainfluenza Virus 3 Not Detected (Not Detect); Parainfluenza Virus 4 Not Detected (Not Detect); Respiratory Syncytial Virus Not Detected (Not Detect)
[2020-05-20] MEDS: *HR* OxyCODONE Immed Rel 5 MG TABLET PO PRN (17:27)
[2020-05-20] MEDS: Vancomycin 1,250 MG/262.5 ML IV.SOLN IVPB SCH (17:41)
[2020-05-21] MEDS: Ampicillin 2 GM in 0.9 % Sodium Chloride Mini Bag 100 ML IVPB SCH ×3 (03:07→15:15)
[2020-05-21] MEDS: *HR* OxyCODONE Immed Rel 5 MG TABLET PO PRN ×2 (04:52→11:46)
[2020-05-21] MEDS: *HR* LORazepam 1 MG TABLET PO PRN (04:52)
[2020-05-21] MEDS: Vancomycin 1,250 MG/262.5 ML IV.SOLN IVPB SCH (04:54)
[2020-05-21 06:09] LABS: Basophils % 0.4 %; Eosinophils # 0.1 K/mcL (0.0-0.6); Eosinophils % 0.8 %; Hematocrit 37.8 % (37.5-50.1); Hemoglobin 12.2 g/dL (12.9-16.9); Immature Granulocytes % 0.4 % (0-4); Lymphocytes # 2.2 K/mcL (0.6-4.6); Lymphocytes % 25.6 %; Mean Corpuscular HGB Conc 32.3 g/dL (31.6-35.5); Mean Corpuscular Volume 93.1 fL (83.0-100.0); Mean Platelet Volume 10.5 fL (9.4-12.4); Monocytes # 0.9 K/mcL (0.0-1.3); Monocytes % 10.7 %; Neutrophils # 5.3 K/mcL (1.6-8.9); Platelet Count 247 K/mcL (140-400); Red Blood Count 4.06 M/mcL (4.19-5.50); Red Cell Distribution Width 14.1 % (11.5-14.5); Segmented Neutrophils % 62.1 %; White Blood Count 8.5 K/mcL (4.3-11.1)
[2020-05-21 06:30] LABS: BUN/Creatinine Ratio 32 (6-26); Blood Urea Nitrogen 26 mg/dL (6-20); Calcium 9.3 mg/dL (8.6-10.3); Carbon Dioxide 25 mEq/L (23-29); Chloride 106 mEq/L (98-107); Glucose 109 mg/dL (70-105); Osmolality,Calculated 291 (280-300); Potassium 3.9 mEq/L (3.5-5.1); Sodium 138 mEq/L (136-145); eGFR For African Americans > 60 (> 60); eGFR For Non-African Americans > 60 (> 60)
[2020-05-21] MEDS ORDERED: Dexamethasone 4 MG/ML VIAL ONE ×2 (07:10→07:14)
[2020-05-21] MEDS ORDERED: Ondansetron 4 MG/2 ML VIAL ONE (07:10)
[2020-05-21] MEDS ORDERED: *HR* Propofol 200 MG/20 ML VIAL IVP ONE (07:10)
[2020-05-21] MEDS ORDERED: *HR* Midazolam HCl 2 MG/2 ML VIAL ONE (07:10)
[2020-05-21] MEDS ORDERED: *HR* FentaNYL (PF) 100 MCG/2 ML VIAL ONE (07:10)
[2020-05-21] MEDS ORDERED: Lidocaine -MPF 2% 2 ML VIAL ONE ×2 (07:10→07:13)
[2020-05-21] MEDS ORDERED: 0.9 % Sodium Chloride 500 ML ONE ×2 (09:42→10:12)
[2020-05-21] MEDS ORDERED: *HR* Midazolam HCl 2 MG/2 ML VIAL IVP ONE ×2 (09:53→10:03)
[2020-05-21] MEDS ORDERED: *HR* FentaNYL (PF) 100 MCG/2 ML VIAL IVP ONE ×2 (09:53→10:04)
[2020-05-21 11:48] VITALS: BP 121/73
[2020-05-21] MEDS ORDERED: *HR* Enoxaparin 40 MG/0.4 ML SYRINGE SQ SCH (13:01)
[2020-05-21] MEDS ORDERED: *HR* OxyCODONE Immed Rel 5 MG TABLET PO PRN (14:24)
== END 2020-05-21 16:39 | disposition left against medical advice (07) ==
LOC: 2NENU 22:41 → EMEROOARM 22:41 → SUATTDRO 05-20 05:50 → 2NENU 05-20 08:16 → 2ANU 05-20 13:58
PROVIDERS: ADMIT Family Medicine; ATTEND Internal Medicine

== ENCOUNTER 2020-07-08 21:03 | Observation (INO) ==
[2020-07-08] MEDS ORDERED: Isovue-370 500 ML BOTTLE IVP ONE (22:50)
[2020-07-08] MEDS ORDERED: 0.9 % Sodium Chloride 1,000 ML IVC ONE (23:27)
[2020-07-08 23:41] LABS: Basophils # 0.1 K/mcL (0.0-0.2); Basophils % 0.8 %; Eosinophils # 0.1 K/mcL (0.0-0.6); Eosinophils % 0.8 %; Hematocrit 42.8 % (37.5-50.1); Hemoglobin 13.8 g/dL (12.9-16.9); Immature Granulocytes % 0.4 % (0-4); Lymphocytes # 2.8 K/mcL (0.6-4.6); Lymphocytes % 24.5 %; Mean Corpuscular HGB Conc 32.2 g/dL (31.6-35.5); Mean Corpuscular Hemoglobin 29.4 pg (28.0-33.3); Mean Corpuscular Volume 91.3 fL (83.0-100.0); Mean Platelet Volume 10.1 fL (9.4-12.4); Monocytes # 0.6 K/mcL (0.0-1.3); Monocytes % 5.1 %; Neutrophils # 7.9 K/mcL (1.6-8.9); Platelet Count 346 K/mcL (140-400); Red Blood Count 4.69 M/mcL (4.19-5.50); Red Cell Distribution Width 13.8 % (11.5-14.5); Segmented Neutrophils % 68.4 %; White Blood Count 11.5 K/mcL (4.3-11.1)
[2020-07-08 23:44] LABS: Bilirubin,Urine Negative (Negative); Blood,Urine Negative (Negative); Clarity,Urine Clear (Clear); Color,Urine Light-Yellow (Yellow); Glucose,Urine (UA) Normal (Normal); Ketones,Urine Negative (Negative); Leukocyte Esterase,Urine Negative (Negative); Nitrite,Urine Negative (Negative); PH,Urine 6.5 pH Units (5.0-8.0); Protein,Urine Negative (Neg-Trace); Specific Gravity,Urine 1.025 (1.010-1.025); Urobilinogen,Urine Normal (Normal)
[2020-07-09 00:03] LABS: Alanine Aminotransferase 15 Units/L (7-52); Albumin 4.5 g/dL (3.5-5.7); Albumin/Globulin Ratio 1.2 (1.1-2.2); Alkaline Phosphatase 81 Units/L (34-104); Aspartate Amino Transferase 10 Units/L (13-39); BUN/Creatinine Ratio 18 (6-26); Bilirubin,Direct 0.1 mg/dL (0.0-0.2); Bilirubin,Indirect 0.6 mg/dL (0.0-1.0); Bilirubin,Total 0.7 mg/dL (0.3-1.0); Blood Urea Nitrogen 17 mg/dL (6-20); Calcium 9.9 mg/dL (8.6-10.3); Carbon Dioxide 24 mEq/L (23-29); Chloride 103 mEq/L (98-107); Globulin 3.9 g/dL (2.4-3.5); Glucose 95 mg/dL (70-105); Lipase 34 Units/L (11-82); Osmolality,Calculated 283 (280-300); Potassium 4.2 mEq/L (3.5-5.1); Sodium 136 mEq/L (136-145); Total Protein 8.4 g/dL (6.4-8.9); Troponin I < 0.03 ng/mL (< 0.04); eGFR For African Americans > 60 (> 60); eGFR For Non-African Americans > 60 (> 60)
[2020-07-09 01:13] LABS: Adenovirus Not Detected (Not Detect); Bordetella Pertussis Not Detected (Not Detect); Chlamydophila pneumoniae Not Detected (Not Detect); Coronavirus 229E Not Detected (Not Detect); Coronavirus HKU1 Not Detected (Not Detect); Coronavirus NL63 Not Detected (Not Detect); Coronavirus OC43 Not Detected (Not Detect); Human Metapneumovirus Not Detected (Not Detect); Human Rhinovirus/Enterovirus Not Detected (Not Detect); Influenza A Subtype 2009 H1 Not Detected (Not Detect); Influenza B Not Detected (Not Detect); Mycoplasma pneumoniae Not Detected (Not Detect); Parainfluenza Virus 1 Not Detected (Not Detect); Parainfluenza Virus 2 Not Detected (Not Detect); Parainfluenza Virus 3 Not Detected (Not Detect); Parainfluenza Virus 4 Not Detected (Not Detect); Respiratory Syncytial Virus Not Detected (Not Detect); SARS-CoV-2 Not Detected (Not Detect)
[2020-07-09] MEDS ORDERED: Piperacillin/Tazobactam 3.375 GM in 0.9 % Sodium Chloride Mini Bag 100 ML IVPB ONE (03:26)
[2020-07-09] MEDS ORDERED: Vancomycin 1,250 MG/262.5 ML IV.SOLN IVPB ONE (03:26)
[2020-07-09] MEDS ORDERED: Ondansetron 4 MG/2 ML VIAL IVP PRN (06:33)
[2020-07-09] MEDS ORDERED: Naloxone 0.4 MG/ML INJ IVP PRN (09:56)
[2020-07-09] MEDS ORDERED: 0.9 % Sodium Chloride 1,000 ML IVC SCH (11:45)
[2020-07-09 11:52] VITALS: BP 117/71
== END 2020-07-09 12:10 | disposition left against medical advice (07) ==
LOC: EMEROOARM 21:03 → CDU 21:03
PROVIDERS: ADMIT Family Medicine; ATTEND Family Medicine

== ENCOUNTER 2020-07-31 21:31 | Observation (INO) ==
[2020-07-31] MEDS ORDERED: 0.9 % Sodium Chloride 1,000 ML IVC ONE (22:45)
[2020-07-31 23:23] LABS: Basophils % 0.1 %; Eosinophils % 0.2 %; Hematocrit 30.5 % (37.5-50.1); Hemoglobin 9.8 g/dL (12.9-16.9); Immature Granulocytes % 0.5 % (0-4); Lymphocytes # 1.6 K/mcL (0.6-4.6); Mean Corpuscular HGB Conc 32.1 g/dL (31.6-35.5); Mean Corpuscular Hemoglobin 29.5 pg (28.0-33.3); Mean Corpuscular Volume 91.9 fL (83.0-100.0); Mean Platelet Volume 9.3 fL (9.4-12.4); Monocytes # 0.7 K/mcL (0.0-1.3); Monocytes % 4.9 %; Neutrophils # 11.3 K/mcL (1.6-8.9); Platelet Count 402 K/mcL (140-400); Red Blood Count 3.32 M/mcL (4.19-5.50); Red Cell Distribution Width 13.3 % (11.5-14.5); Segmented Neutrophils % 82.3 %; White Blood Count 13.7 K/mcL (4.3-11.1)
[2020-07-31 23:41] LABS: BUN/Creatinine Ratio 19 (6-26); Blood Urea Nitrogen 21 mg/dL (6-20); Calcium 8.9 mg/dL (8.6-10.3); Carbon Dioxide 24 mEq/L (23-29); Chloride 104 mEq/L (98-107); Glucose 125 mg/dL (70-105); Osmolality,Calculated 292 (280-300); Potassium 3.7 mEq/L (3.5-5.1); Sodium 139 mEq/L (136-145); eGFR For African Americans > 60 (> 60); eGFR For Non-African Americans > 60 (> 60)
[2020-08-01] MEDS ORDERED: Ondansetron 4 MG/2 ML VIAL IVP PRN (01:18)
[2020-08-01] MEDS ORDERED: Naloxone 0.4 MG/ML INJ IVP PRN (01:18)
[2020-08-01] MEDS ORDERED: Acetaminophen 325 MG TABLET PO PRN (01:18)
[2020-08-01] MEDS ORDERED: Doxycycline 100 MG in 0.9 % Sodium Chloride Mini Bag 100 ML IVPB SCH (02:00)
[2020-08-01] MEDS ORDERED: 0.9 % Sodium Chloride 1,000 ML IVC SCH (02:15)
[2020-08-01] MEDS: Nicotine 21 MG PATCH.TD24 TD SCH ×2 (02:31→09:15)
[2020-08-01] MEDS ORDERED: Isovue-370 500 ML BOTTLE IVP ONE (06:50)
[2020-08-01 11:08] VITALS: BP 117/68
== END 2020-08-01 12:00 | disposition left against medical advice (07) ==
LOC: 3NENU 21:31 → EMEROOARM 21:31 → SUATTDRO 08-01 00:40 → 3NENU 08-01 01:07
PROVIDERS: ADMIT Student in an Organized Health Care Education/Training Program; ATTEND Internal Medicine

== ENCOUNTER 2022-06-21 16:42 | Observation (INO) ==
[2022-06-21] MEDS ORDERED: cefTRIAXone 2,000 MG in 0.9 % Sodium Chloride 20 ML IVP ONE (18:11)
[2022-06-21] MEDS ORDERED: 0.9 % Sodium Chloride 1,000 ML IVC ONE (18:12)
[2022-06-21 18:24] LABS: Bilirubin,Urine Negative (Negative); Blood,Urine Negative (Negative); Clarity,Urine Clear (Clear); Color,Urine Yellow (Yellow); Glucose,Urine (UA) Normal (Normal); Ketones,Urine Negative (Negative); Leukocyte Esterase,Urine Negative (Negative); Nitrite,Urine Negative (Negative); Protein,Urine Trace mg/dL (Neg-Trace); Specific Gravity,Urine 1.026 (1.010-1.025)
[2022-06-21 18:36] LABS: Amphetamine Screen,Urine Positive ng/mL (Cutoff=1000); Barbiturate Screen,Urine Negative ng/mL (Cutoff=200); Benzodiazepines Screen,Urine Negative ng/mL (Cutoff=200); Cannabinoid Screen,Urine Positive ng/mL (Cutoff = 50); Cocaine Screen,Urine Negative ng/mL (Cutoff= 300); Opiate Screen,Urine Negative ng/mL (Cutoff=300); Phencyclidine Screen,Urine Negative ng/mL (Cutoff=25)
[2022-06-21 19:10] LABS: Basophils % 0.4 %; Eosinophils % 0.5 %; Hematocrit 32.2 % (37.5-50.1); Hemoglobin 10.7 g/dL (12.9-16.9); Immature Granulocytes % 0.3 % (0-4); Lymphocytes # 1.1 K/mcL (0.6-4.6); Lymphocytes % 13.4 %; Mean Corpuscular HGB Conc 33.2 g/dL (31.6-35.5); Mean Corpuscular Hemoglobin 29.6 pg (28.0-33.3); Mean Corpuscular Volume 89.2 fL (83.0-100.0); Mean Platelet Volume 9.9 fL (9.4-12.4); Monocytes # 0.7 K/mcL (0.0-1.3); Monocytes % 8.6 %; Neutrophils # 6.1 K/mcL (1.6-8.9); Platelet Count 272 K/mcL (140-400); Red Blood Count 3.61 M/mcL (4.19-5.50); Red Cell Distribution Width 13.9 % (11.5-14.5); Segmented Neutrophils % 76.8 %; White Blood Count 7.9 K/mcL (4.3-11.1)
[2022-06-21 19:22] LABS: INR 1.1; Prothrombin Time 11.8 Seconds (9.4-12.1)
[2022-06-21 19:25] LABS: Activated Partial Thrombo Time 25.1 Seconds (26.0-36.0)
[2022-06-21 19:48] LABS: Acetaminophen < 10 mcg/mL (10-20); Alanine Aminotransferase 24 Units/L (7-52); Albumin 3.9 g/dL (3.5-5.7); Albumin/Globulin Ratio 1.3 (1.1-2.2); Alkaline Phosphatase 76 Units/L (34-104); Aspartate Amino Transferase 38 Units/L (13-39); BUN/Creatinine Ratio 20 (6-26); Bilirubin,Direct 0.2 mg/dL (0.0-0.2); Bilirubin,Indirect 0.4 mg/dL (0.0-1.0); Bilirubin,Total 0.6 mg/dL (0.3-1.0); Blood Urea Nitrogen 19 mg/dL (6-20); Calcium 9.2 mg/dL (8.6-10.3); Carbon Dioxide 26 mEq/L (23-29); Chloride 102 mEq/L (98-107); Ethanol < 10 mg/dL (Less than 10); Glucose 96 mg/dL (70-105); Lipase 3 Units/L (11-82); Magnesium 1.9 mg/dL (1.6-2.6); Osmolality,Calculated 286 (280-300); Phosphorous 3.3 mg/dL (2.7-4.5); Salicylate < 2.5 mg/dL (15.0-30.0); Sodium 137 mEq/L (136-145); Total Protein 6.9 g/dL (6.4-8.9); Troponin I 0.04 ng/mL (< 0.04)
[2022-06-21] MEDS ORDERED: Acetaminophen 325 MG TABLET PO PRN (21:53)
[2022-06-21] MEDS ORDERED: Naloxone 0.4 MG/ML INJ IVP PRN (21:53)
[2022-06-21] MEDS ORDERED: Ondansetron 4 MG/2 ML VIAL IVP PRN (21:53)
[2022-06-21 23:43] LABS: Adenovirus Not Detected (Not Detect); Bordetella Pertussis Not Detected (Not Detect); Chlamydophila pneumoniae Not Detected (Not Detect); Coronavirus 229E Not Detected (Not Detect); Coronavirus HKU1 Not Detected (Not Detect); Coronavirus NL63 Not Detected (Not Detect); Coronavirus OC43 Not Detected (Not Detect); Human Metapneumovirus Not Detected (Not Detect); Human Rhinovirus/Enterovirus Not Detected (Not Detect); Influenza A Subtype 2009 H1 Not Detected (Not Detect); Influenza B Not Detected (Not Detect); Mycoplasma pneumoniae Not Detected (Not Detect); Parainfluenza Virus 1 Not Detected (Not Detect); Parainfluenza Virus 2 Not Detected (Not Detect); Parainfluenza Virus 3 Not Detected (Not Detect); Parainfluenza Virus 4 Not Detected (Not Detect); Respiratory Syncytial Virus Not Detected (Not Detect); SARS-CoV-2 Not Detected (Not Detect)
[2022-06-22] MEDS ORDERED: Ipratropium/Albuterol Neb 3 ML IH PRN (00:03)
[2022-06-22] MEDS: 0.9 % Sodium Chloride 1,000 ML IVC SCH ×2 (02:18→07:19)
[2022-06-22 07:14] VITALS: BP 127/88; PULSE 64; TEMP 97.4; O2SAT 99
[2022-06-22 08:12] LABS: Basophils % 0.3 %; Eosinophils # 0.2 K/mcL (0.0-0.6); Eosinophils % 2.6 %; Hematocrit 37.8 % (37.5-50.1); Hemoglobin 12.2 g/dL (12.9-16.9); Immature Granulocytes % 0.3 % (0-4); Lymphocytes # 1.6 K/mcL (0.6-4.6); Mean Corpuscular HGB Conc 32.3 g/dL (31.6-35.5); Mean Corpuscular Hemoglobin 29.2 pg (28.0-33.3); Mean Corpuscular Volume 90.4 fL (83.0-100.0); Mean Platelet Volume 9.9 fL (9.4-12.4); Monocytes # 0.7 K/mcL (0.0-1.3); Monocytes % 11.9 %; Neutrophils # 3.5 K/mcL (1.6-8.9); Platelet Count 297 K/mcL (140-400); Red Blood Count 4.18 M/mcL (4.19-5.50); Red Cell Distribution Width 14.3 % (11.5-14.5); Segmented Neutrophils % 57.9 %; White Blood Count 6.1 K/mcL (4.3-11.1)
[2022-06-22 08:20] LABS: INR 1.1; Prothrombin Time 11.9 Seconds (9.4-12.1)
[2022-06-22 08:32] LABS: BUN/Creatinine Ratio 23 (6-26); Blood Urea Nitrogen 19 mg/dL (6-20); Calcium 9.1 mg/dL (8.6-10.3); Carbon Dioxide 25 mEq/L (23-29); Chloride 105 mEq/L (98-107); Chol/HDL Ratio 2.7 (0-4.9); Cholesterol 144 mg/dL (< 200); Glucose 97 mg/dL (70-105); HDL Cholesterol 54 mg/dL (40-59); LDL Cholesterol,Calculated 78 mg/dL (< 100); Magnesium 2.1 mg/dL (1.6-2.6); Osmolality,Calculated 286 (280-300); Potassium 4.2 mEq/L (3.5-5.1); Sodium 137 mEq/L (136-145); Triglycerides 62 mg/dL (< 150)
[2022-06-22] MEDS ORDERED: *HR* Enoxaparin 40 MG/0.4 ML SYRINGE SQ SCH (09:00)
[2022-06-22] MEDS ORDERED: Azithromycin 500 MG in 0.9 % Sodium Chloride 250 ML IVPB SCH (09:00)
[2022-06-22] MEDS ORDERED: cefTRIAXone 1,000 MG in 0.9 % Sodium Chloride Mini Bag 100 ML IVPB SCH (09:00)
== END 2022-06-22 09:43 | disposition left against medical advice (07) ==
LOC: EMEROOARM 16:42 → 3BNU 16:42
PROVIDERS: ADMIT Student in an Organized Health Care Education/Training Program; ATTEND Student in an Organized Health Care Education/Training Program